=== PATIENT | female | born 1950 | race Caucasian/White ===

== ENCOUNTER → 2016-11-26 19:18 | Outpatient (CLI) | payer MEDICARE, OTHER | END | disposition home or self-care (01) | LOC: D.SLEEP 19:18 | DX: G47.33 Obstructive sleep apnea (adult) (pediatric) (principal) ==

== ENCOUNTER → 2016-12-30 18:44 | Outpatient (CLI) | payer MEDICARE, OTHER | END | disposition home or self-care (01) | LOC: D.SLEEP 08:00 | DX: G47.33 Obstructive sleep apnea (adult) (pediatric) (principal) ==

== ENCOUNTER → 2017-12-31 09:05 | Outpatient (CLI) | payer MEDICARE, OTHER ==
--- NOTE | ~2017-12-31 | EC ---
PATIENT:KAM HECK DATE OF SERVICE: 12/31/17 SEX: F MEDICAL RECORD: [id number] DATE OF : [birth year] LOCATION:[facility] AGE OF PATIENT: 67 ADMISSION DATE: 12/31/17 REFERRING PHYSICIAN: INTERPRETING PHYSICIAN: KANIKA ORTEGA MD ECHOCARDIOGRAM REPORT ECHO CHARGES 4 ECHO COMPLETE Date: 12/31/17 CLINICAL DIAGNOSIS: HTN/HYPERLIPDEMA ECHOCARDIOGRAPHIC MEASUREMENTS (adult normal given) AC root (d.<3.7cm) 3.6 cm LV Septum d (<1.2 cm> 1.5 cm Valve Excursion 1.9 cm LV Septum (systole) 1.7 cm Left Atria (s.<4.0cm> 4.2 cm LVPW d(<1.2cm) 1.7 cm RV (d.<2.3cm) 3.5 cm LVPW (sytole) 1.8 cm LV diastole(<5.6CM) 4.4 cm MV E-F(>70mm/sec) cm LV systole 3.4 cm LVOT Diameter 1.6 cm MV exc.(>10mm) 1.4 cm Est.ejection fraction (50-75%) % DOPPLER: LVIT cm/sec A 63.0 cm/sec E 45.0 cm/sec LA cm/sec RVSP 44 mmHg LVOT 67 cm/sec AOP1/2T m/s Asc. Ao 104 cm/sec RVOT 59 cm/sec RA cm/sec PA 66 cm/sec AV Gradient Peak 4.35 mmHg AV Mean 2.29 mmHg AV Area 1.3 cm MV Gradient Peak 3.88 mmHg MV Mean 0.98 mmHg MV Area cm COMMENTS: Television Camera Operator: [address] Manager: 4 Dr. Ortega TAPE# PACS Pericardial Effusion N DATE OF SERVICE: PROCEDURE: Transthoracic echocardiogram. FINDINGS: 1. Left ventricle was difficult to visualize, but the overall function appears to be normal. There is no obvious regional wall motion abnormalities, although posterior and inferior russ were not well visualized. 2. The left atrium has mild dilatation. 3. Aortic valve is normal. ECHOCARDIOGRAM REPORT [id number] KAM HECK 4. The mitral valve has moderate mitral regurgitation. 5. Tricuspid valve has mild tricuspid regurgitation. 6. The right ventricle is mildly dilated. 7. The right atrium is mildly dilated. 8. The right ventricular systolic pressure is mildly elevated at 43 mmHg. 9. There is no pericardial effusion. 10. The pulmonic valve is normal. 11. There is inflow characteristics consistent with diastolic dysfunction. CONCLUSIONS: The patient has evidence of hypertensive heart disease and [id number] mitral regurgitation with mildly dilated left atrium. TRANSINT:[id number] Voice Confirmation ID: [id number] DOCUMENT ID: [id number] KANIKA ORTEGA MD at 1348 CC: [id number] DICTATION DATE: 01/01/18 1025 JIG BORING MACHINE OPERATOR FOR METAL: 01/01/18 1044 DEP CLI 12/31/17 [facility] [address] [place] [address]
== END | disposition home or self-care (01) ==
LOC: D.ECHO 12-17 13:30
DX: I10 Essential (primary) hypertension (principal); E78.5 Hyperlipidemia, unspecified

== ENCOUNTER → 2019-03-30 07:30 | Outpatient (CLI) | payer MEDICARE, OTHER ==
--- NOTE | ~2019-03-30 | ST ---
PATIENT:KAM HECK MEDICAL RECORD: [id number] SEX: F LOCATION:[facility] ORDER #: ADMISSION DATE: 03/30/19 AGE OF PATIENT: 68 REFERRING PHYSICIAN: INTERPRETING PHYSICIAN: JANINA HENNING MD DATE OF SERVICE: 03/30/2019 INDICATION: Angina, hypertension, and shortness of breath. TECHNIQUE: She was exercised on standard Vivek protocol for 5 minutes achieving 85% max target heart rate response with 33 mCi of sestamibi injected at peak stress with 11 mCi used previously for rest images. FINDINGS: Gated SPECT reveals decreased ejection fraction at 36% with decreased thickening and brightening throughout the inferior segments. SPECT imaging Cardiolite was used as the myocardial perfusion agent. There is a fixed perfusion defect inferiorly compatible with previous inferior myocardial infarction; however, there is ongoing reversible ischemia anteriorly and apically. This includes the basal, mid, apical anterior segments as well as the apex itself. OVERALL IMPRESSION: This is an intermediate to high risk abnormal nuclear stress test, fixed perfusion defect inferiorly with a resultant ischemic cardiomyopathy, but ongoing ischemia anteriorly and apically suggestive of multivessel hemodynamically significant coronary artery disease. TRANSINT:[id number] Voice Confirmation ID: [id number] DOCUMENT ID: [id number] JANINA HENNING MD CC: [id number] DICTATION DATE: 03/31/19 1525 HUMAN SERVICES ASSISTANT: 04/01/[address] [facility] CLI 03/30/19 [id number] [place] [address]
--- NOTE | ~2019-03-30 | EC ---
PATIENT:KAM HECK DATE OF SERVICE: 03/30/19 SEX: F MEDICAL RECORD: [id number] DATE OF : [birth year] [facility] AGE OF PATIENT: 68 ADMISSION DATE: 03/30/19 REFERRING PHYSICIAN: INTERPRETING PHYSICIAN: JANINA RODRIGUEZ MD ECHOCARDIOGRAM REPORT ECHO CHARGES 4 ECHO COMPLETE Date: 03/30/19 CLINICAL DIAGNOSIS: GRUBER/CP/ANGINA/PVC'S H/O HTN ECHOCARDIOGRAPHIC MEASUREMENTS (adult normal given) AC root (d.<3.7cm) 2.7 cm LV Septum d (<1.2 cm> 1.0 cm Valve Excursion 1.9 cm LV Septum (systole) 1.4 cm Left Atria (s.<4.0cm> 4.9 cm LVPW d(<1.2cm) 0.9 cm RV (d.<2.3cm) 2.9 cm LVPW (sytole) 1.4 cm LV diastole(<5.6CM) 6.0 cm MV E-F(>70mm/sec) cm LV systole 4.3 cm LVOT Diameter 1.8 cm MV exc.(>10mm) cm Est.ejection fraction (50-75%) % DOPPLER: LVIT cm/sec A 40.0 cm/sec E 91.0 cm/sec LA cm/sec RVSP 23.0 mmHg LVOT 69.0 cm/sec AOP1/2T m/s Asc. Ao 116 cm/sec RVOT 56.0 cm/sec RA cm/sec PA 51.0 cm/sec AV Gradient Peak 5.4 mmHg AV Mean 2.8 mmHg AV Area 1.5 cm MV Gradient Peak 3.7 mmHg MV Mean 1.5 mmHg MV Area cm COMMENTS: OP - HC Product Development Actuary: 1 KARELY ARMINTO Customs Agent: 1 Dr. Rodriguez TAPE# PACS Pericardial Effusion N DATE OF SERVICE: PROCEDURE: Echocardiogram. FINDINGS: 1. Left ventricular chamber size is mildly dilated. Left ventricular systolic function is moderately depressed at 30% to 35%. 2. Left atrium is enlarged at 4.9 cm. Right atrium and right ventricular chamber sizes are as well moderately dilated. 3. Valvular structures have normal structure and motion. ECHOCARDIOGRAM REPORT [id number] KAM HECK ANN 4. Doppler interrogation reveals moderate mitral regurgitation, mild tricuspid regurgitation, no other valvular insufficiency or stenosis. Pulmonary systolic pressure estimated at 23 mmHg. 5. No evidence of pericardial effusion or left ventricular thrombus. TRANSINT:[id number] Voice Confirmation ID: [id number] DOCUMENT ID: [id number] JANINA RODRIGUEZ MD CC: [id number] DICTATION DATE: 03/31/19 1340 CHILD WELFARE SOCIAL WORKER: 03/31/192211 DEP CLI 03/30/19 [place] [id number] [place] [id number]
== END | disposition home or self-care (01) ==
LOC: D.HCCECHO 07:30
PROVIDERS: ATTEND Internal Medicine Interventional Cardiology
DX: I25.119 Atherosclerotic heart disease of native coronary artery with unspecified angina pectoris (principal)

== ENCOUNTER 2019-04-14 08:30 | Outpatient (CLI) | payer MEDICARE, OTHER ==
[~2019-04-14] VITALS: Ht 160 cm; Wt 86.4 kg
--- NOTE | ~2019-04-14 | HEMODYNAMI ---
PATIENT:KAM HECK MEDICAL RECORD: [id number] : 52 LOCATION:DCHARLENE ADMISSION DATE: 04/14/19 Generatedon:04/14/201911:15 Patient name: KAM HECK Patient #: [id number] SSN: [id number] : 1950 Date of study: 04/14/2019 Page: Of Hemodynamic Procedure Report Patient Data Patient Demographics Procedure consent was obtained First Name: KAM Gender: Female Last Name: UMANG : 1950 [facility] Initial: JANEEN Age: 68 year(s) Patient #: [id number] Race: Unknown SSN: [id number] Additional ID: [id number] Contact details [address]: [address] [place] [address] State: [place] City: [place] Zip code: [address] Past Medical History Allergies Allergen Reaction Date Comments Reported Other allergy 04/14/2019 Sulfa Admission Admission Data Admission Date: 04/14/2019 Admission Time: 8:30 Arrival Date: 04/14/2019 Arrival Time: 0:00 Admit Source: Other Insurance Payor: Medicare, Private health insurance [facility] #: [id number] Height (in.): 63 BSA: 1.92 (m2) Height (cm.): 160.02 BMI: 34.72 (kg/m2) Weight (lbs.): 196 Weight (kg.): 88.9 Lab Results Lab Result Date: 04/14/2019 Lab Result Time: 0:00 Biochemistry Name Units Result Min Max BUN mg/dl 16 --(---*)-- 7 18 Creatinine mg/dl 1.1 --(--*-)-- 0.6 1.3 CBC Name Units Result Min Max Hemoglobin g/dl 9.7 *-(----)-- 13.5 17.5 Procedure Procedure Types Cath Procedure Diagnostic Procedure LHC LHC w/Coronaries FFR/IVUS FFR Initial FFR Additional Sedation Charges Moderate Sedation up to 30 minutes PCI Procedure Coronary Stent Coronary Stent Initial Coronary Stent Initial x2 Hemochron ACT Test Procedure Description Procedure Date Procedure Date: 04/14/2019 Procedure Start Time: 10:36 Procedure End Time: 11:14 Procedure Staff Name Function Jas Rodriguez MD Performing Physician Ashley Green RT Monitor Jaycee Vines RT Scrub Rachel Smith RN Nurse Indication Angina Dyspnea Edema Procedure Data Cath Procedure Fluoroscopy Diagnostic fluoroscopy Total fluoroscopy Time: time: 11.6 min 11.6 min Diagnostic fluoroscopy Total fluoroscopy dose: dose: 1335 mGy 1335 mGy Contrast Material Contrast Material Type Amount (ml) Isovue 300 163 Entry Location Entry Primary Successful Side Size Upsize Upsize Entry Closure Succes sful Closure Location (Fr) 1 (Fr) 2 (Fr) Remarks Device Remarks Femoral Right 5 Fr 6 Fr Exoseal artery Short Estimated blood loss: 10 ml Diagnostic catheters Device Type Used For End Catheter Placement MULTIPACK Pigtail 5 Fr Procedure catheter MULTIPACK JL 4.0 5Fr Procedure catheter MULTIPACK 3DRC 5Fr Procedure catheter Procedure Complications No complications Procedure Medications Medication Administration Route Dosage 0.9% NaCl I.V. 100 ml/hr Oxygen etCO2 Nasal cannula 2 l/min Lidocaine 2% added to field 20 Heparin Flush Bag added to field 2 bags (1000units/500ml NS) Versed I.V. 2 mg Fentanyl I.V. 50 mcg Versed I.V. 2 mg Fentanyl I.V. 50 mcg Heparin Bolus I.V. 4000 units Integrilin (Bolus I.V. 7.9 ml 2mg/ml) Integrilin (Bolus I.V. 2.1 ml 2mg/ml) Plavix P.O. 600 mg Fentanyl I.V. 50 mcg Hemodynamics Rest BSA: 1.92 (m2) HGB: 9.7 (g/dl) O2 Consumption: Estimated: 170.76 (ml/min) O2 Con sumption indexed: Estimated:88.94 (ml/min/m) Heart Rate: 59 (bpm) Snapshots Pre Cath Intra NCS Post Cath Vital Signs Time Heart Resp SPO2 etCO2 NIBP (mmHg) Rhythm Pain Status Sedation Rate (ipm) (%) (mmHg) Level (bpm) 10:03:36 59 10 100 27 133/72(104) SB 0 (11) , No 10(A) pain 10:07:46 64 15 100 25.5 132/76(118) NSR 0 (11) , No 10(A) pain 10:11:50 61 21 99 26.2 120/75(99) NSR 0 (11) , No 10(A) pain 10:15:53 61 18 99 30 124/80(89) NSR 0 (11) , No 10(A) pain 10:19:59 64 16 97 10.5 119/77(107) NSR 0 (11) , No 10(A) pain 10:24:03 67 17 96 7.5 119/73(98) NSR 0 (11) , No 10(A) pain 10:28:09 63 18 97 14.2 128/73(106) NSR 0 (11) , No 10(A) pain 10:32:17 61 25 99 25.5 125/76(101) NSR 0 (11) , No 10(A) pain 10:36:24 67 19 97 14 120/74(103) NSR 0 (11) , No 10(A) pain 10:40:30 67 13 99 12 124/69(99) NSR 0 (11) , No 9(A) pain 10:44:38 69 13 97 7.5 122/68(108) NSR 0 (11) , No 9(A) pain 10:48:44 73 10 100 13.5 124/73(104) NSR 0 (11) , No 9(A) pain 10:52:48 74 10 100 15 134/84(111) NSR 0 (11) , No 9(A) pain 10:56:53 71 10 100 15.7 134/83(116) NSR 4 (11) , 10(A) Distressing 11:01:01 75 14 100 39.7 133/79(117) NSR 4 (11) , 10(A) Distressing 11:05:13 66 17 98 33.7 121/70(99) NSR 0 (11) , No 10(A) pain 11:09:21 71 27 99 41.2 129/66(104) NSR 0 (11) , No 10(A) pain 11:14:24 61 10 100 35.2 122/76(111) NSR 0 (11) , No 10(A) pain Medications Time Medication Route Dose Verified Delivered Reason Notes Effectiveness by by 10:02:33 0.9% NaCl I.V. 100 Jas Rachel used for ml/hr Michael Smith client care coordinator 10:02:39 Oxygen etCO2 2 Jas Rachel used for Nasal l/min Michael Smith procedure cannula RN 10:02:45 Lidocaine 2% added 20ml Jas Jas for local to vial Michael Rodriguez MD anesthetic field 10:03:07 Heparin Flush added 2 Jas Jas used for Bag to bags Michael Rodriguez MD procedure (1000units/500ml field NS) 10:31:38 Versed I.V. 2 mg Jas Rachel for sedation Michael Smith RN 10:31:49 Fentanyl I.V. 50 Jas Rachel for sedation mcg Michael Smith RN 10:37:50 Versed I.V. 2 mg Jas Rachel for sedation Michael Smith RN 10:37:53 Fentanyl I.V. 50 Jas Rachel for sedation mcg Michael Smith RN 10:44:02 Heparin Bolus I.V. 4000 Jas Rachel for verif ied units Michael Smith anticoagulation with Dr. ADI Rodriguez 10:44:16 Integrilin I.V. 7.9 Jas Rachel for (Bolus 2mg/ml) ml Michael Smith antiplatelet RN therapy 10:44:27 Integrilin I.V. 2.1 Jas Rachel for (Bolus 2mg/ml) ml Michael Smith antiplatelet RN therapy 10:45:44 Plavix P.O. 600 Jas Rachel for mg Michael Smith antiplatelet RN therapy 11:01:00 Fentanyl I.V. 50 Jas Rachel for sedation mcg Michael Smith pattern finisher Log Time Note 18:40:47 6 Fr EBU guide catheter was inserted over the wire 9:55:44 Diagnostic Cath Status : Elective 9:56:02 Indication : Angina 9:56:19 Ashley SANTOS(R) sent for patient. Start room use. 9:56:20 Time tracking: Regular hours (M-F 7:00 - 5:00) 9:56:24 Plan of Care:Hemodynamics will remain stable., Cardiac rhythm will remain stable., Comfort level will be maintained., Respiratory function will remain adequate., Patient/ family verbilizes understanding of procedure., Procedure tolerated without complication., Recovers from procedure without complications.. 9:58:08 Patient received from Pre/Post Procedure Room to CCL 2 Alert and oriented. Tansferred to table in Supine position. 9:58:10 Signed procedure consent form obtained from patient. 9:58:11 Warm blankets applied, and susana hugger turned on for patient comfort. 9:58:11 Correct patient and procedure confirmed by team. 9:58:11 ECG and BP/O2 sat monitors applied to patient. 10:00:37 Risk of Mortality: 0.1 10:00:44 Risk of blood transfusion: 12.7 10:00:48 Risk of ALESSIA: 4.6 10:01:03 3a) 45-59 Moderately reduced kidney function. 10:01:32 Maximum allowable contrast dose (3.7 X eGFR X 0.75)144 ml. 10:02:24 Vital chart was started 10:02:33 0.9% NaCl 100 ml/hr I.V. was administered by Rachel Smith RN; used for procedure; Verbal order read back and verified. 10:02:39 Oxygen 2 l/min etCO2 Nasal cannula was administered by Rachel Smith RN; used for procedure; Verbal order read back and verified. 10:02:45 Lidocaine 2% 20ml vial added to field was administered by Jas Rodriguez MD; for local anesthetic; Verbal order read back and verified. 10:03:07 Heparin Flush Bag (1000units/500ml NS) 2 bags added to field was administered by Jas Rodriguez MD; used for procedure; Verbal order read back and verified. 10:04:11 Baseline sample Acquired. 10:04:15 Rhythm: sinus rhythm 10:04:17 Full Disclosure recording started 10:04:25 H&P Date Dictated: 04/21/2019 Within 30 days and on chart., H&P Addendum completed by physician on day of procedure. (MUST COMPLETE FOR ALL OUTPATIENTS). 10:04:26 Pre-procedure instructions explained to patient. 10:04:28 Family in waiting room. 10:04:29 Patient NPO since Midnight. 10:04:39 Patient allergic to Other allergySulfa 10:04:42 Is the patient allergic to Iodine/contrast media? No. 10:04:43 Was the patient premedicated? Yes 10:04:44 Is patient on blood thinner?No 10:04:46 Patient diabetic? No. 10:04:51 Previous problem with sedation/anesthesia? Yes vomiting 10:04:54 Snore? Yes 10:04:54 Sleep apnea? Yes 10:05:02 Patient pain scale 0/10 ?. 10:05:08 IV patent on arrival in left forearm with 0.9% NaCl at [facility]. 10:05:42 Lab Result : BUN 16 mg/dl 10:05:42 Lab Result : Creatinine 1.1 mg/dl 10:05:42 Lab Result : Hemoglobin 9.7 g/dl 10:05:47 Lab results completed and on chart. 10:06:09 Stress Test: yes; abnormal anterior apically 10:06:13 Right groin area was prepped with chlora-prep and draped in sterile fashion 10:06:14 Alarms reviewed by R. N. 10:06:15 Sharps counted by scrub and verified by R.N. 10:06:16 Physician paged 10:06:19 Use device set Femoral Dx 10:06:21 ACIST Syringe (24613) opened to sterile field. 10:06:21 Bag Decanter (2002S) opened to sterile field. 10:06:21 Medline Cath Pack ([id number]) opened to sterile field. 10:06:23 ACIST Hand Control (91519) opened to sterile field. 10:06:23 ACIST Manifold (24720) opened to sterile field. 10:06:24 DIAGNOSTIC Multipack 5Fr catheter set ([id number]) opened to sterile field. 10:06:25 Tegaderm 4 x 4 (1626W) opened to sterile field. 10:06:27 SHEATH 5FR [place] (KJH456) opened to sterile field. 10:06:28 EMERALD Guide Wire (502-920) opened to sterile field. 10:15:30 Admit Source: Other 10:15:33 Arrival Date: 04/14/2019 12:00:00 AM 10:15:58 Insurance Payor : Private health insurance, Medicare 10:16:05 Patient Height : 63 inches 10:16:09 Patient Weight : 196 lbs 10:16:28 Indication : Dyspnea 10:16:50 Indication : Edema 10:17:39 Zero performed for pressure channel P1 10:30:41 Physician arrived 10:30:41 --------ALL STOP TIME OUT------ 10:30:42 Final Timeout: patient, procedure, and site verified with staff and physician. All members of the team are in agreement. 10:30:57 Right groin site verified by team. 10:31:03 Fire Safety Assessment: A--An alcohol-based skin anteseptic being used preoperatively., C--Open oxygen or nitrous oxide is being used., D--An ESU, laser, or fiber-optic light is being used. 10:31:08 Physical assessment completed. ASA score P 2 - A patient with mild systemic disease as per Jas Rodriguez MD. 10:31:15 Sedation plan: IV Moderate Sedation Medication:Versed, Fentanyl 10:31:38 Versed 2 mg I.V. was administered by Rachel Smith RN; for sedation; Verbal order read back and verified. 10:31:49 Fentanyl 50 mcg I.V. was administered by Rachel Smith RN; for sedation; Verbal order read back and verified. 10:36:32 Procedure started. 10:36:43 Local anesthetic to right femoral artery with Lidocaine 2% by Jas Rodriguez MD.INITIAL ACCESS ONLY 10:36:57 A 5 Fr sheath was inserted into the Right Femoral artery 10:37:01 J wire advanced. 10:37:10 A MULTIPACK Pigtail 5 Fr catheter was advanced over the wire and used for Procedure. 10:37:50 Versed 2 mg I.V. was administered by Rachel Smith RN; for sedation; Verbal order read back and verified. 10:37:52 LV angiography performed. 10:37:53 Fentanyl 50 mcg I.V. was administered by Rachel Smith RN; for sedation; Verbal order read back and verified. 10:38:29 LV gram done using ASTORGA 10:38:34 EF : 40 % 10:38:36 Catheter removed. 10:38:42 A MULTIPACK JL 4.0 5Fr catheter was advanced over the wire and used for Procedure. 10:38:48 LCA angiography performed. 10:39:45 Catheter removed. 10:39:51 A MULTIPACK 3DRC 5Fr catheter was advanced over the wire and used for Procedure. 10:39:56 RCA angiography performed. 10:40:21 Catheter removed. 10:41:27 Sheath upsized to a 6 Fr Short. 10:44:02 Heparin Bolus 4000 units I.V. was administered by Rachel Smith RN; for anticoagulation; verified with Dr. Rodriguez Verbal order read back and verified. 10:44:04 GUIDE 6FR AR 1.0 catheter (LR1LY73) opened to sterile field. 10:44:05 INFLATOR Merit BasixCompak (OW4275) opened to sterile field. 10:44:06 SHEATH 6FR [place] (NOS129) opened to sterile field. 10:44:16 Integrilin (Bolus 2mg/ml) 7.9 ml I.V. was administered by Rachel Smith RN; for antiplatelet therapy; Verbal order read back and verified. 10:44:27 Integrilin (Bolus 2mg/ml) 2.1 ml I.V. was administered by Rachel Smith RN; for antiplatelet therapy; Verbal order read back and verified. 10:45:16 CHOICE PT Extra Support 182cm wire ([id number]) opened to sterile field. 10:45:17 [place] Verrata Plus pressure wire (12987R) opened to sterile field. 10:45:32 choice pt ex wire advanced. 10:45:34 Wire advanced across lesion. 10:45:44 Plavix 600 mg P.O. was administered by Rachel Smith RN; for antiplatelet therapy; Verbal order read back and verified. 10:45:58 Inflate balloon Inflation number: 1 A EUPHORA 2.5 x 20 Balloon ([id number]) was prepped and advanced across the Mid RCA , then inflated to 13 SHAILESH for 0:00 (min:sec) . 10:46:01 Inflation number: 2 The EUPHORA 2.5 x 20 Balloon ([id number]) was reinflated across the Mid RCA , to 15 SHAILESH for 0:00 (min:sec) . 10:46:04 Inflation number: 3 The EUPHORA 2.5 x 20 Balloon ([id number]) was reinflated across the Mid RCA , to 17 SHAILESH for 0:00 (min:sec) . 10:46:14 Balloon removed over the wire. 10:48:01 Stent removed. unable to cross lesion. 10:48:05 Balloon re-inserted over wire. 10:49:00 Inflation number: 4 The EUPHORA 2.5 x 20 Balloon ([id number]) was reinflated across the Mid RCA , to 15 SHAILESH for 0:13 (min:sec) . 10:49:10 Balloon removed over the wire. 10:50:15 Place stent Inflation Number: 1 A SHELLEY RX 2.5 x 38 stent ([id number]) was prepped and advanced across the Dist RCA 95. The stent was deployed at 17 SHAILESH for 0:06 (min:sec) 0. 10:52:43 Stent removed. unable to cross lesion. 10:53:40 Inflate balloon Inflation number: 1 A EUPHORA 3.0 x 20 Balloon ([id number]) was prepped and advanced across the Mid RCA1 17, then inflated to 17 SHAILESH for 0:14 (min:sec) 0. 10:53:46 Balloon removed over the wire. 10:55:15 Place stent Inflation Number: 5 A SHELLEY RX 3.0 x 26 stent ([id number]) was prepped and advanced across the Mid RCA 95. The stent was deployed at 13 SHAILESH for 0:16 (min:sec) 0. 10:56:36 Place stent Inflation Number: 1 A SHELLEY RX 3.0 x 15 stent ([id number]) was prepped and advanced across the Prox RCA 95. The stent was deployed at 15 SHAILESH for 0:06 (min:sec) . 10:57:47 Wire removed. 10:57:48 Guide catheter removed. 10:58:09 6 Fr xblad 3.5 guide catheter was inserted over the wire 10:58:17 GUIDE 6FR XBLAD 3.5 catheter ([id number]) opened to sterile field. 11:00:04 Guide catheter removed. 11:00:46 GUIDE 5FR EBU 3.5 catheter ([id number]) opened to sterile field. 11:01:00 Fentanyl 50 mcg I.V. was administered by Rachel Smith RN; for sedation; Verbal order read back and verified. 11:01:11 FFR/IFR wire advanced. 11:02:24 ACT drawn and resulted at 220 seconds. (normal therapeutic range 180-240 seconds). 11:02:45 pLAD lesion measured at .78 with IFR 11:04:51 Place stent Inflation Number: 1 A SHELLEY RX 3.0 x 22 stent ([id number]) was prepped and advanced across the Mid LAD 70. The stent was deployed at 15 SHAILESH for 0:10 (min:sec) . 11:05:38 Stent removed. 11:06:33 Wire redirected to cx. 11:06:50 mCirc lesion measured at .79 with IFR 11:07:44 Place stent Inflation Number: 1 A SHELLEY RX 2.75 x 18 stent ([id number]) was prepped and advanced across the Mid CX 70. The stent was deployed at 13 SHAILESH for 0:06 (min:sec) . 11:08:47 Stent balloon re-inserted over wire. 11:08:51 Wire removed. 11:08:51 Guide catheter removed. 11:09:00 Sheath removed intact; hemostasis achieved with Exoseal to the Right Femoral artery. 11:09:10 EXOSEAL 6Fr (EX600) opened to sterile field. 11:09:13 Procedure ended.(Physican Out) 11:09:35 Fluoroscopy time 11.60 minutes. 11:09:43 Fluoroscopy dose: 1335 mGy 11:09:43 Flurop Dose total: 1335 11:09:47 Dose Area Product 65141 mGy/cm. 11:09:53 Contrast amount:Isovue 300 163ml. 11:09:55 Maximum allowable dose exceeded? Yes. 11:09:56 Sharps counted by scrub and verified by R.N. 11:09:59 Insertion/operative site no bleeding no hematoma. 11:10:05 Post right femoral artery:stable 11:10:08 Post Procedure Pulses reassessed and unchanged 11:10:11 Post-procedure physical assessment completed. ASA score P 3 - A patient with severe systemic disease as per Jas Rodriguez MD. 11:10:16 Post procedure rhythm: unchanged. 11:10:19 Estimated blood loss: 10 ml 11:10:20 Post procedure instruction explained to patient.Patient verbalizes understanding. 11:12:02 Procedure type changed to Cath procedure, Diagnostic procedure, LHC, LHC w/Coronaries, FFR/IVUS, FFR Initial, FFR Additional, Sedation Charges, Moderate Sedation up to 30 minutes, PCI procedure, Coronary Stent, Coronary Stent Initial, Coronary Stent Initial x2, Hemochron ACT Test 11:12:08 Procedure and supply charges have been captured, reviewed, submitted and are correct. 11:13:13 Procedure Complication : No complications 11:13:16 Vital chart was stopped 11:13:55 [facility] Findings: MVD- PCI performed (see procedure note) 11:13:58 Operative report dictated upon procedure completion. 11:14:01 Report given to Pre/Post Procedure Room. 11:14:04 Patient transfered to Pre/Post Procedure Room with Stretcher. 11:14:07 Procedure ended. 11:14:07 Full Disclosure recording stopped 11:14:14 End room use (Document Last) 11:14:25 ACC-PCI Only Patient was given prescriptions, or instructed by Jas Rodriguez MD to start/continue the following medications upon discharge: Plavix Intervention Summary Intervention Notes Time ActionType Lesion and Equipment Used Action# Pressure Duration Attributes 10:45:58 Inflate Mid RCA EUPHORA 2.5 x 1 13 00:00 balloon 20 Balloon ([id number]) 10:46:01 Reinflate Mid RCA EUPHORA 2.5 x 2 15 00:00 balloon 20 Balloon ([id number]) 10:46:04 Reinflate Mid RCA EUPHORA 2.5 x 3 17 00:00 balloon 20 Balloon ([id number]) 10:49:00 Reinflate Mid RCA EUPHORA 2.5 x 4 15 00:13 balloon 20 Balloon ([id number]) 10:50:15 Place stent Dist RCA SHELLEY RX 2.5 x 1 17 00:06 38 stent ([id number]) 10:53:40 Inflate Mid RCA1 EUPHORA 3.0 x 1 17 00:14 balloon 20 Balloon ([id number]) 10:55:15 Place stent Mid RCA SHELLEY RX 3.0 x 5 13 00:16 26 stent ([id number]) 10:56:36 Place stent Prox RCA SHELLEY RX 3.0 x 1 15 00:06 15 stent ([id number]) 11:04:51 Place stent Mid LAD SHELLEY RX 3.0 x 1 15 00:10 22 stent ([id number]) 11:07:44 Place stent Mid CX SHELLEY RX 2.75 x 1 13 00:06 18 stent ([id number]) Device Usage Item Name Manufacture Quantity Catalog Number Hospital Part Current Minimal Lot# / Charge Number Stock Stock Serial# Code ACIST Syringe Acist 1 26761 621397 880621 295361 20 (97780) Medical Systems Inc Bag Decanter Microtek 1 894067 87827 574013 5 () Medical Inc. Medline Cath Medline 1 [id number] 781685 51883 832256 5 Pack ([id number]) ACIST Hand Acist 1 75342 568124 738117 061963 5 Control Medical (78281) Systems Inc ACIST Manifold Acist 1 25126 213796 498152 922017 5 (77465) Medical Systems Inc DIAGNOSTIC Cardinal 1 YH8144 721393 42889 845885 30 Multipack 5Fr Health catheter set (RT2019) Tegaderm 4 x 4 3M 1 1626W 361493 227273 563890 5 (1626W) SHEATH 5FR Terumo 1 OVW485 111685 708912 356249 5 [place] (WUW381) EMERALD Guide Cardinal 1 502-455 145168 973834 697825 5 Wire (502-455) Health MULTIPACK Cardinal 1 925153 5 Pigtail 5 Fr Health catheter MULTIPACK JL Cardinal 1 202263 5 4.0 5Fr Health catheter MULTIPACK 3DRC Cardinal 1 026072 5 5Fr catheter Health GUIDE 6FR AR Medtronic 1 [id number] 897616 70308 470035 1 1.0 catheter (SA2NV74) INFLATOR Merit Merit 1 DO0608 205373 186342 905463 15 Bullitt GroupAcadia HealthcareEnpirion Medical (PU6745) SHEATH 6FR Terumo 1 JUG135 456515 728312 572275 40 [place] (QLZ106) CHOICE PT [place] 1 [id number] 742091 854492 066124 5 Extra Support Scientific 182cm wire ([id number]) [place] Huntington 1 51264K 519676 842467180 385979 5 Verrata Plus pressure wire (67177P) EUPHORA 2.5 x Medtronic 1 [id number] 461282 986455 249307 5 [id number] 20 Balloon (HZV5288V) SHELLEY RX 2.5 x Medtronic 1 [id number] 785995 1865163 502836 5 [id number] 38 stent ([id number]) EUPHORA 3.0 x Medtronic 1 [id number] 506052 033510 658652 5 [id number] 20 Balloon ([id number]) SHELLEY RX 3.0 x Medtronic 1 [id number] 972452 6705796 889544 5 [id number] 26 stent ([id number]) SHELLEY RX 3.0 x Medtronic 1 [id number] 055905 6349063 642700 5 [id number] 15 stent ([id number]) GUIDE 6FR Cardinal 1 [id number] 496099 401380 857151 10 XBLAD 3.5 Health catheter (52330603) GUIDE 5FR EBU Medtronic 1 [id number] 525103 372483 516575 1 3.5 catheter (TP9VYD24) SHELLEY RX 3.0 x Medtronic 1 [id number] 220850 3853268 224720 5 [id number] 22 stent ([id number]) SHELLEY RX 2.75 x Medtronic 1 [id number] 677428 5260337 518510 5 [id number] 18 stent ([id number]) EXOSEAL 6Fr Cardinal 1 EX600 457158 104220 819821 10 (EX600) Health Signature Audit Souris Stage Time Signature Unsigned Intra-Procedure 04/14/2019 Ashley Green 11:14:40 AM RT(R) Intra-Procedure 04/14/2019 Rachel Smith 11:15:17 AM RN Intra-Procedure 04/14/2019 Jas Rodriguez 11:15:39 AM Signatures Performing Physician : Signature : Jas Rodriguez MD Date : Time : Monitor : Ashley Green Signature : RT Date : Time : Nurse : Rachel Smith RN Signature : Date : Time : [address] [place] [address]
--- NOTE | ~2019-04-14 | OP ---
PATIENT NAME: KAM HECK MEDICAL RECORD: [id number] :52 LOCATION:D.CAT ADMISSION DATE: SURGEON: JANINA HENNING MD DATE OF OPERATION: 04/14/2019 PROCEDURES: 1. PTCA and stent to the RCA. 2. PTCA and stent to the LAD. 3. PTCA and stent to the left circumflex. 4. IFR LAD. 5. IFR left circumflex. 6. Left heart catheterization. 7. Selective coronary angiography. 8. Left ventriculogram. INDICATIONS: Angina and coronary artery disease. PROCEDURE PERFORMED: After informed consent was obtained, after detailed discussion of the risks, benefits as well as alternative therapies, the patient elected to proceed with angiogram and angioplasty. The right radial area was prepped and draped in normal sterile fashion. Right radial artery was cannulated via modified Seldinger technique with placement of 6-Malay sheath. All catheters exchanged through this sheath. FINDINGS: The left ventriculogram performed in standard 30-degree ASTORGA view, reveals global hypokinesis, ejection fraction in the 40% to 45% range. SELECTIVE CORONARY ANGIOGRAPHY: 1. Left main is with no significant angiographic disease. 2. Left anterior descending has 70% to 75% stenosis proximally and IFR was abnormal. 3. Left circumflex has 70% to 75% stenosis proximally and IFR was abnormal. 4. Right coronary has 80% stenosis in the mid vessel followed by 90% to 95% stenosis in the mid distal vessel. PTCA AND STENT OF THE RCA: Stents used from distal to proximal were 2.5 x 38, 3.0 x 26, 3.0 x 15, all [place] stents. Result was 0% residual stenosis. PTCA AND STENT OF THE LAD: The stent used was a 3.0 x 22 mm Abdifatah. Result was 0% residual stenosis. PTCA AND STENT OF THE LEFT CIRCUMFLEX: The stent used was a 2.75 x 18 mm Abdifatah. Result was 0% residual stenosis. OVERALL IMPRESSION: Successful PTCA stent of the LAD, circumflex, and RCA, all going from 70% to 95% initial stenosis to 0% residual. TRANSINT:[id number] Voice Confirmation ID: [id number] DOCUMENT ID: [id number] OPERATIVE REPORT [id number] KAM HECK JANINA HENNING MD CC: [id number] DICTATION DATE: 04/25/19 165 FLEXOGRAPHIC PRINTING MACHINIST: 04/25/19 2327 DEP CLI 04/14/19 [id number] [place] [address]
[2019-04-14] MEDS ORDERED: ARMOUR THYROID30 MG PO (08:43)
[2019-04-14] MEDS ORDERED: LIPITOR40 MG PO (08:43)
[2019-04-14] MEDS ORDERED: SYNALAR 0.01 %60 ML TOPICAL (08:44)
[2019-04-14] MEDS ORDERED: LEXAPRO20 MG PO (08:44)
[2019-04-14] MEDS ORDERED: VYVANSE50 MG PO (08:45)
[2019-04-14] MEDS ORDERED: PROTONIX40 MG PO (08:45)
[2019-04-14] MEDS ORDERED: MAGNESIUM OXID420 MG PO (08:45)
[2019-04-14] MEDS ORDERED: UROCIT-K10 MEQ PO (08:46)
[2019-04-14] MEDS ORDERED: DIOVAN160 MG PO (08:47)
[2019-04-14] MEDS ORDERED: TEMAZEPAM30 MG PO (08:47)
[2019-04-14] MEDS ORDERED: ZYRTEC10 MG PO (08:47)
[2019-04-14] MEDS ORDERED: AMITIZA8 MCG PO (08:47)
[2019-04-14 08:57] VITALS: BP 129/72; Ht 160 cm; Wt 86.4 kg
[2019-04-14 09:09] LABS: BASOPHILS 0.6 % (0-2); EOSINOPHILS 4.1 % (0-7); HEMATOCRIT 32.3 % (36.0-48.0); HEMOGLOBIN 9.7 g/dL (12-16); IMMATURE GRANULOCYTES 0.2 % (0-5); LYMPHOCYTES 25.7 % (15-50); MCH 23.8 pg (26.0-34.0); MCV 79.4 fL (80.0-100.0); MONOCYTES 6.2 % (2-11); NEUTROPHILS 63.2 % (40-80); PLATELET COUNT 323 10x3/uL (130-400); RBC 4.07 10x6/uL (4.00-5.40); RDW 18.8 % (11.5-14.5); WBC 4.8 10x3/uL (4.8-10.8)
[2019-04-14 09:25] LABS: ANION GAP 11.9 mmol/L (8-16); CALCIUM 9.3 mg/dL (8.5-10.1); CARBON DIOXIDE 29.3 mmol/L (21.0-32.0); CHOL - HDL RATIO 1.9 ratio (2.3-4.1); CREATININE - SERUM 1.1 mg/dL (0.6-1.3); LDL-HDL RATIO 0.8 ratio (1.5-3.5); POTASSIUM - SERUM 4.2 mmol/L (3.5-5.1)
--- NOTE | 2019-04-14 11:27 | NUR ---
REC TO ROOM VIA STRETCHER FROM CLINICAL TECHNICIAN. MONITORING INITIATED. BROTHER AT BEDSIDE, STATES DR HENNING HAS ALREADY BEEN BY AND SPOKEN W HIM. R GROIN DRESSING TEGADERM/4X4 CDI, GROIN SOFT, NO S/S BLEEDING/HEMATOMA. RLE WARM, R FOOT WARM, PPP FAINTLY. COVERED W WARM BLANKETS AT PT REQUEST.
[2019-04-14] MEDS ORDERED: PLAVIX75 MG PO (11:44)
[2019-04-14] MEDS ORDERED: ASPIRIN81 MG PO (11:44)
--- NOTE | 2019-04-14 12:00 | NUR ---
R GROIN SOFT, NO S/S BLEEDING/HEMATOMA. PPP. STILL C/O HEARTBURN. GI COCKTAIL ORDERED PER DR HENNING.
--- NOTE | 2019-04-14 12:15 | NUR ---
R GROIN SOFT, CDI. NO S/S BLEEDING/HEMATOMA. HR 90, BP 107/61.
--- NOTE | 2019-04-14 12:46 | NUR ---
R GROIN CDI, SOFT. NO S/S BLEEDING/HEMATOMA. BP 114/72, HR 61, SAT 100% ON 2LNC. STATES HEARTBURN RESOLVED WITH GI COCKTAIL.
--- NOTE | 2019-04-14 13:00 | NUR ---
R GROIN SOFT, DRESSING CDI. NO S/S HEMATOMA OR BLEEDING. NSR,60. BP 115/73. SAT 100% ON 2LNC.
--- NOTE | 2019-04-14 13:30 | NUR ---
R GROIN CDI, SOFT. NO S/S BLEEDING/HEMATOMA. HR SB 58, BP 129/75 SAT 100% ON 1LNC
--- NOTE | 2019-04-14 13:59 | NUR ---
R GROIN CDI, SOFT. NO S/S BLEEDING/HEMATOMA. SB 58, BP 129/75. RR 12, SAT 100% ON 1LNC.
--- NOTE | 2019-04-14 14:20 | NUR ---
PULLED UP IN BED W ANOTHER NURSE. RAISED HOB, PROVIDED SANDWICH AND DIET SODA. R GROIN REMAINS SOFT, NONTENDER AND NO S/S BLEEDING/HEMATOMA AFTER POSITION CHANGE.
--- NOTE | 2019-04-14 14:32 | NUR ---
PIERRE SANDWICH AND SODA WITHOUT COMPLAINT. R GROIN REMAINS SOFT, NONTENDER, NO S/S BLEEDING/HEMATOMA. PPP. HR NSR 72, BP 135/69, RR 15, SAT 98% 1LNC.
--- NOTE | 2019-04-14 14:45 | NUR ---
IV DC TIP INTACT, MONITORING DISCONTINUED. R GROIN REMAINS CDI, SOFT. NO S/S BLEEDING OR HEMATOMA. PT DRESSING.
--- NOTE | 2019-04-14 15:10 | NUR ---
DISCHARGE INSTRUCTIONS REVIEWED W PT AND BROTHER, INCLUDING ADDITION OF PLAVIX TO DAILY MEDS. PTHAS STENT CARDS AND RX.
--- NOTE | 2019-04-14 15:15 | NUR ---
DC HOME VIA WHEELCHAIR TO PRIVATE CAR WITH BROTHER. PT HAS ALL BELONGINGS.
== END 2019-04-14 15:15 ==
LOC: D.CATH 08:30
PROVIDERS: ATTEND Internal Medicine Interventional Cardiology
DX: I25.119 Atherosclerotic heart disease of native coronary artery with unspecified angina pectoris (principal); I10 Essential (primary) hypertension; R06.00 Dyspnea, unspecified; E78.5 Hyperlipidemia, unspecified
CPT/HCPCS: 93458; 93571; 93572; C9600 ×3